=== PATIENT | male | born 1935 | race Native Hawaiian/Other Pacific Islander ===

== ENCOUNTER 2017-09-19 13:39 | Outpatient (CLI) | payer OTHER | END 2017-09-19 19:12 | disposition home or self-care (01) | LOC: RAD 13:39 | DX: R05 Cough (principal) ==

== ENCOUNTER 2017-10-03 08:18 | Outpatient (CLI) | payer OTHER | END 2017-10-03 09:30 | disposition home or self-care (01) | LOC: RESP 08:18 | DX: J20.9 Acute bronchitis, unspecified (principal); R05 Cough | CPT/HCPCS: 36600; 82805; 94640; 94664 ==

== ENCOUNTER 2018-02-20 08:58 | Observation (INO) | payer OTHER ==
[~2018-02-20] VITALS: Ht 177.8 cm; Wt 69.5 kg
[2018-02-20 09:33] LABS: PLATELET COUNT 112 K/uL (142-355)
[2018-02-20 09:38] LABS: POTASSIUM 3.9 mmol/L (3.6-5.2)
[2018-02-20 10:06] VITALS: BP 136/54; TEMP 97.6; Ht 177.8 cm; Wt 69.5 kg
[2018-02-20 11:25] LABS: PARTIAL THROMBOPLASTIN TIME 24.7 SECONDS (24.5-33.6)
[2018-02-20 16:00] VITALS: BP 124/56; TEMP 98.9
--- NOTE | 2018-02-20 17:34 | NUR ---
ORTHOSTATIC BLOOD PRESSURE LYIN/56 SITTIN/56 STANDIN/49 DR MICHAELS NOTIFIED. BMP ORDERED FOR IN THE AM AND ORDER TO INCREASE IV FLUIDS TO 85ML/HR.
--- NOTE | 2018-02-20 17:45 | NUR ---
DR. STRAUSS HERE AT THIS TIME TO CONSULT WITH PT.
--- NOTE | 2018-02-20 18:15 | NUR ---
DR STRAUSS WROTE IN PROGRESS NOTES "IMPRESSION PARKINSONS DISEASE" AND WROTE ORDERS TO START CARVIDOPA TID. PT GIVEN FIRST DOSE TONIGHT. DISEASE EXPLAINED TO FAMILY AND PT PER DR. STRAUSS.
--- NOTE | 2018-02-20 19:20 | NUR ---
DR. MICHAELS CALLED AND NOTIFIED ABOUT DR. ABBOTT PROGRESS NOTE AND NEW ORDERS. DR. MICHAELS STATES TO MONITOR PTS BLOOD PRESSURE.
[2018-02-20 20:00] VITALS: BP 133/66; TEMP 99.3
[2018-02-21] VITALS: BP 140/63; TEMP 98.4
[2018-02-21 04:00] VITALS: BP 138/69; TEMP 98.1
[2018-02-21 06:37] LABS: POTASSIUM 3.5 mmol/L (3.6-5.2)
[2018-02-21 08:00] VITALS: BP 129/71; TEMP 98.9
== END 2018-02-21 10:55 | disposition home or self-care (01) ==
LOC: MED/SURG 08:58
PROVIDERS: ADMIT Internal Medicine
DX: R55 Syncope and collapse (principal); R53.1 Weakness; R42 Dizziness and giddiness; G20 Parkinson's disease; R25.8 Other abnormal involuntary movements; G95.89 Other specified diseases of spinal cord
CPT/HCPCS: 80048; 80053; 81000; 82550; 83735; 84443; 84484; 85027; 85379; 85610; 85730; 93005; 96365; 96366; 99220; A9576; G0378; G0379

== ENCOUNTER 2018-08-07 12:47 | Outpatient (CLI) | payer OTHER ==
[2018-08-07 13:22] LABS: POTASSIUM 3.8 mmol/L (3.6-5.2)
[2018-08-07 13:25] LABS: PLATELET COUNT 132 K/uL (142-355)
== END 2018-08-07 19:42 | disposition home or self-care (01) ==
LOC: LAB 12:47
PROVIDERS: Internal Medicine
DX: G20 Parkinson's disease (principal); Z79.899 Other long term (current) drug therapy; E53.8 Deficiency of other specified B group vitamins; E55.9 Vitamin D deficiency, unspecified; R29.898 Other symptoms and signs involving the musculoskeletal system
CPT/HCPCS: 80053; 80061; 81000; 82306; 82550; 82607; 83735; 84439; 84443; 85027; 85651; 86039

== ENCOUNTER 2018-12-31 08:58 | Inpatient (IN) | payer OTHER ==
[~2018-12-31] VITALS: Ht 177.8 cm; Wt 58.3 kg
[2018-12-31 11:22] LABS: PLATELET COUNT 135 K/uL (142-355)
[2018-12-31 11:49] LABS: POTASSIUM 3.8 mmol/L (3.6-5.2)
[2018-12-31 13:39] VITALS: BP 182/77; TEMP 98.1; Ht 177.8 cm; Wt 58.3 kg
[2018-12-31 17:00] VITALS: BP 156/61; TEMP 101.9
[2018-12-31 20:00] VITALS: BP 128/60; TEMP 98.8
[2019-01-01] VITALS: BP 153/60; TEMP 102.1
[2019-01-01 04:29] VITALS: BP 104/80; TEMP 99.1
[2019-01-01 06:15] LABS: POTASSIUM 3.6 mmol/L (3.6-5.2); SODIUM 138 mmol/L (136-145)
[2019-01-01 08:05] VITALS: BP 136/64; TEMP 100
[2019-01-01 12:00] VITALS: BP 137/60; TEMP 99
[2019-01-01 16:00] VITALS: BP 157/70; TEMP 100.5
[2019-01-01 20:00] VITALS: BP 157/63; TEMP 97.7
[2019-01-02] VITALS: BP 144/64; TEMP 98.6
[2019-01-02 04:00] VITALS: BP 137/58; TEMP 98.4
[2019-01-02 08:00] VITALS: BP 133/62; TEMP 97.8
[2019-01-02 08:32] LABS: PLATELET COUNT 102 K/uL (142-355)
[2019-01-02 08:45] LABS: POTASSIUM 3.7 mmol/L (3.6-5.2)
[2019-01-02 12:00] VITALS: BP 135/58; TEMP 97.6
[2019-01-02 16:16] VITALS: BP 126/57; TEMP 98
[2019-01-02 20:00] VITALS: BP 149/64; TEMP 98.7
[2019-01-03] VITALS: BP 161/84; TEMP 98.8
[2019-01-03 04:00] VITALS: BP 141/70; TEMP 97.6
[2019-01-03 08:00] VITALS: BP 140/55; TEMP 97.6
[2019-01-03 12:00] VITALS: BP 154/70; TEMP 98
[2019-01-03 16:00] VITALS: BP 138/69; TEMP 97.7
[2019-01-03 20:20] VITALS: BP 164/72; TEMP 98.1
[2019-01-04] VITALS (7 sets, daily range): BP systolic 127–181; BP diastolic 63–86; TEMP 97.5–98.3
[2019-01-04 06:45] LABS: POTASSIUM 4.3 mmol/L (3.6-5.2)
[2019-01-05 04:00] VITALS: BP 121/70; TEMP 97.7
[2019-01-05 05:52] LABS: POTASSIUM 4.5 mmol/L (3.6-5.2)
[2019-01-05 08:00] VITALS: BP 144/68; TEMP 99.1
[2019-01-05 12:00] VITALS: BP 139/73; TEMP 97.7
[2019-01-05 16:00] VITALS: BP 111/57; TEMP 97.2
[2019-01-05 20:08] VITALS: BP 109/73; TEMP 98
[2019-01-06] VITALS (14 sets, daily range): BP systolic 109–159; BP diastolic 37–78; TEMP 97.3–98.8
[2019-01-06 06:30] LABS: POTASSIUM 3.7 mmol/L (3.6-5.2)
[2019-01-07] VITALS: BP 141/70; TEMP 99.1
[2019-01-07 04:00] VITALS: BP 132/67; TEMP 97.7
[2019-01-07 06:49] LABS: POTASSIUM 3.8 mmol/L (3.6-5.2)
[2019-01-07 08:00] VITALS: BP 147/69; TEMP 98.8
[2019-01-07 12:00] VITALS: BP 135/62; TEMP 98.2
[2019-01-07 16:00] VITALS: BP 99/49; TEMP 98.3
[2019-01-07 20:00] VITALS: BP 115/54; TEMP 98.2
[2019-01-08] VITALS: BP 128/61; TEMP 97.6
[2019-01-08 04:00] VITALS: BP 105/60; TEMP 97.7
[2019-01-08 08:00] VITALS: BP 109/52; TEMP 97.4
[2019-01-08 12:00] VITALS: BP 113/55; TEMP 98.4
== END 2019-01-08 15:55 | disposition home or self-care (01) | DRG 178 ==
LOC: MED/SURG 08:58
PROVIDERS: ADMIT Internal Medicine
PROC: 0DH63UZ Insertion of Feeding Device into Stomach, Percutaneous Approach (ICD-10-PCS; principal; 2019-01-06)
DX: J69.0 Pneumonitis due to inhalation of food and vomit (principal); J44.1 Chronic obstructive pulmonary disease with (acute) exacerbation; J44.0 Chronic obstructive pulmonary disease with (acute) lower respiratory infection; G20 Parkinson's disease; K58.9 Irritable bowel syndrome, unspecified; L71.8 Other rosacea; E86.0 Dehydration; R13.12 Dysphagia, oropharyngeal phase
CPT/HCPCS: 36415; 80048; 80053; 81000; 82550; 83735; 83880; 84484; 85027; 85379; 85651; 87040; 87070; 87205; 87502; 87651; 87899; 93005; 94640; 94664; 94668; 94760; J1650; J1956; J2001; J2250; J2704; J2920; J3010; J3490

== ENCOUNTER 2019-02-24 10:26 | Outpatient (CLI) | payer OTHER | END 2019-02-24 23:00 | disposition home or self-care (01) | LOC: LAB 10:26 | DX: R19.7 Diarrhea, unspecified (principal) | CPT/HCPCS: 82272; 83630; 87015; 87045; 87206; 87324; 87328; 87329; 87449; 87507; 87899 ==

== ENCOUNTER 2019-03-05 15:00 | Outpatient (CLI) | payer OTHER | END 2019-03-05 23:47 | disposition home or self-care (01) | LOC: RAD 15:00 | DX: T17.900S Unspecified foreign body in respiratory tract, part unspecified causing asphyxiation, sequela (principal) ==

== ENCOUNTER 2019-04-15 13:38 | Outpatient (CLI) | payer OTHER | END 2019-04-15 20:33 | disposition home or self-care (01) | LOC: LAB 13:38 | DX: R19.7 Diarrhea, unspecified (principal) | CPT/HCPCS: 82272; 83630; 87015; 87045; 87324; 87328; 87329; 87449; 87507; 87899 ==

== ENCOUNTER 2019-05-15 19:31 | Outpatient (CLI) | payer OTHER | END 2019-05-15 20:16 | disposition home or self-care (01) | LOC: LABW 19:31 | DX: R19.7 Diarrhea, unspecified (principal) | CPT/HCPCS: 83630; 87015; 87045; 87206; 87324; 87328; 87329; 87449; 87507; 87899 ==

== ENCOUNTER 2019-05-26 09:00 | Inpatient (IN) | payer OTHER ==
[~2019-05-26] VITALS: Ht 177.8 cm; Wt 62.7 kg
[2019-05-26 09:57] LABS: PLATELET COUNT 144 K/uL (142-355)
[2019-05-26 10:21] LABS: POTASSIUM 4.3 mmol/L (3.6-5.2)
[2019-05-26 12:01] VITALS: BP 127/50; TEMP 97.8; Ht 177.8 cm; Wt 62.7 kg
[2019-05-26 16:00] VITALS: BP 169/65; TEMP 99.6
[2019-05-26 20:00] VITALS: BP 142/64; TEMP 101.4
[2019-05-27] VITALS (7 sets, daily range): BP systolic 134–178; BP diastolic 57–96; TEMP 97.2–99.1
[2019-05-27 09:29] LABS: PLATELET COUNT 131 K/uL (142-355)
[2019-05-27 09:56] LABS: POTASSIUM 3.4 mmol/L (3.6-5.2)
[2019-05-28 04:00] VITALS: BP 144/62; TEMP 100.1
[2019-05-28 05:07] LABS: PLATELET COUNT 122 K/uL (142-355)
[2019-05-28 05:21] LABS: POTASSIUM 3.1 mmol/L (3.6-5.2)
[2019-05-28 08:00] VITALS: BP 142/66; TEMP 98.1
[2019-05-28 12:00] VITALS: BP 138/57; TEMP 98.9
[2019-05-28 16:00] VITALS: BP 160/76; TEMP 98.4
[2019-05-28 20:00] VITALS: BP 147/60; TEMP 98.7
[2019-05-29 00:19] VITALS: BP 169/79; TEMP 98.2
[2019-05-29 04:00] VITALS: BP 163/70; TEMP 98.6
[2019-05-29 05:16] LABS: PLATELET COUNT 137 K/uL (142-355)
[2019-05-29 05:55] LABS: POTASSIUM 3.3 mmol/L (3.6-5.2)
[2019-05-29 08:00] VITALS: BP 169/76; TEMP 97.6
[2019-05-29 12:00] VITALS: BP 158/80; TEMP 98.1
[2019-05-29 16:00] VITALS: BP 173/68; TEMP 98.7
[2019-05-29 19:40] VITALS: BP 166/73; TEMP 99
[2019-05-30 00:03] VITALS: BP 162/75; TEMP 98.7
[2019-05-30 04:23] VITALS: BP 164/68; TEMP 98.3
[2019-05-30 05:16] LABS: PLATELET COUNT 130 K/uL (142-355)
[2019-05-30 08:00] VITALS: BP 156/66; TEMP 98
[2019-05-30 12:00] VITALS: BP 148/59; TEMP 98.9
[2019-05-30 16:00] VITALS: BP 139/44; TEMP 100.1
[2019-05-30 20:00] VITALS: BP 121/51; TEMP 98.8
[2019-05-31] VITALS: BP 106/58; TEMP 98.4
[2019-05-31 04:00] VITALS: BP 148/58; TEMP 98.2
[2019-05-31 04:58] LABS: PLATELET COUNT 129 K/uL (142-355)
[2019-05-31 05:18] LABS: POTASSIUM 3.3 mmol/L (3.6-5.2)
[2019-05-31 08:00] VITALS: BP 157/68; TEMP 98.2
[2019-05-31 12:00] VITALS: BP 140/56; TEMP 98.4
[2019-05-31 16:00] VITALS: BP 165/78; TEMP 98.8
[2019-05-31 20:00] VITALS: BP 172/74; TEMP 98.3
[2019-06-01] VITALS (7 sets, daily range): BP systolic 147–197; BP diastolic 61–93; TEMP 98.1–99.4
[2019-06-01 04:39] LABS: PLATELET COUNT 134 K/uL (142-355)
[2019-06-01 04:56] LABS: POTASSIUM 3.7 mmol/L (3.6-5.2)
[2019-06-02 03:34] VITALS: BP 170/75; TEMP 98
[2019-06-02 06:00] VITALS: BP 150/68
[2019-06-02 12:00] VITALS: BP 145/71; TEMP 98.1
[2019-06-02 16:00] VITALS: BP 160/68; TEMP 98.7
[2019-06-02 21:10] VITALS: BP 166/73; TEMP 98.6
[2019-06-02 23:42] VITALS: BP 161/71; TEMP 97.4
[2019-06-03] VITALS (12 sets, daily range): BP systolic 127–162; BP diastolic 54–75; TEMP 97.2–98.8
[2019-06-03 08:44] LABS: PLATELET COUNT 160 K/uL (142-355)
[2019-06-03 08:59] LABS: POTASSIUM 3.6 mmol/L (3.6-5.2)
[2019-06-04] VITALS: BP 172/83; TEMP 98.7
[2019-06-04 04:00] VITALS: BP 147/78; TEMP 98.7
[2019-06-04 05:46] LABS: POTASSIUM 3.6 mmol/L (3.6-5.2)
[2019-06-04 05:56] LABS: PLATELET COUNT 147 K/uL (142-355)
[2019-06-04 08:00] VITALS: BP 160/80; TEMP 97.4
[2019-06-04 12:00] VITALS: BP 143/61; TEMP 97.9
== END 2019-06-04 13:00 | disposition home health service (06) | DRG 375 ==
LOC: MED/SURG 09:00
PROVIDERS: Internal Medicine; ADMIT Internal Medicine
PROC: 0DBL8ZX Excision of Transverse Colon, Via Natural or Artificial Opening Endoscopic, Diagnostic (ICD-10-PCS; principal; 2019-06-03)
DX: C18.3 Malignant neoplasm of hepatic flexure (principal); E46 Unspecified protein-calorie malnutrition; T17.820A Food in other parts of respiratory tract causing asphyxiation, initial encounter; E86.0 Dehydration; K52.89 Other specified noninfective gastroenteritis and colitis; R53.1 Weakness; R13.19 Other dysphagia; E87.6 Hypokalemia; I10 Essential (primary) hypertension; R74.0 Nonspecific elevation of levels of transaminase and lactic acid dehydrogenase [LDH]; K64.8 Other hemorrhoids; G20 Parkinson's disease; J44.9 Chronic obstructive pulmonary disease, unspecified
CPT/HCPCS: 36415; 80053; 81000; 82150; 82272; 83690; 83735; 84436; 84443; 85027; 87015; 87045; 87070; 87205; 87324; 87328; 87329; 87449; 87507; 87899; J0360; J0456; J0696; J2001; J2405; J2704; J3490; Q9963

== ENCOUNTER 2019-08-20 13:28 | Inpatient (IN) | payer OTHER ==
[~2019-08-20] VITALS: Ht 177.8 cm; Wt 50.0 kg
[2019-08-20 15:10] VITALS: BP 120/57; TEMP 97.9; Ht 177.8 cm; Wt 50.0 kg
[2019-08-20 15:34] LABS: PLATELET COUNT 177 K/uL (142-355)
[2019-08-20 16:03] LABS: POTASSIUM 3.9 mmol/L (3.6-5.2)
[2019-08-20 20:00] VITALS: BP 131/63; TEMP 95
[2019-08-21 20:00] VITALS: BP 140/62; TEMP 99
[2019-08-22 08:00] VITALS: BP 123/56; TEMP 97.6
[2019-08-23 08:00] VITALS: BP 148/75; TEMP 97.7
[2019-08-23 19:52] VITALS: BP 135/64; TEMP 97.9
[2019-08-24 19:50] VITALS: BP 140/62; TEMP 98
[2019-08-25 08:04] VITALS: BP 143/62; TEMP 98.1
[2019-08-25 20:00] VITALS: BP 135/56; TEMP 99.6
[2019-08-26 08:02] VITALS: BP 113/59; TEMP 98.1
[2019-08-26 19:32] VITALS: BP 132/6; TEMP 98.3
[2019-08-27 06:46] LABS: POTASSIUM 4.1 mmol/L (3.6-5.2)
[2019-08-27 06:53] LABS: PLATELET COUNT 159 K/uL (142-355)
[2019-08-27 19:50] VITALS: BP 115/56; TEMP 100
[2019-08-28 08:46] VITALS: BP 127/61; TEMP 98.3
[2019-08-28 19:55] VITALS: BP 141/59; TEMP 100
[2019-08-29 08:10] VITALS: BP 122/57; TEMP 97.9
[2019-08-29 20:00] VITALS: BP 155/80; TEMP 99.7
[2019-08-30 08:07] VITALS: BP 127/65; TEMP 97.1
[2019-08-30 20:00] VITALS: BP 134/63; TEMP 98.9
[2019-08-31 08:00] VITALS: BP 130/60; TEMP 97.6
[2019-08-31 19:33] VITALS: BP 127/60; TEMP 98.6
[2019-09-01 08:28] VITALS: BP 135/67; TEMP 98.2
[2019-09-01 09:28] LABS: PLATELET COUNT 217 K/uL (142-355)
[2019-09-01 09:45] LABS: POTASSIUM 4.3 mmol/L (3.6-5.2)
[2019-09-01 19:59] VITALS: BP 125/70; TEMP 98
[2019-09-03 20:03] VITALS: BP 137/69; TEMP 98.1
[2019-09-03 20:05] VITALS: BP 137/69; TEMP 98.1
[2019-09-04 08:30] VITALS: BP 143/71; TEMP 98.1
[2019-09-04 20:16] VITALS: BP 124/57; TEMP 98.1
[2019-09-05 14:13] VITALS: BP 124/56; TEMP 97.9
[2019-09-05 20:08] VITALS: BP 148/67; TEMP 97.6
[2019-09-06 08:00] VITALS: BP 155/65; TEMP 98
[2019-09-06 19:49] VITALS: BP 139/65; TEMP 98.5
[2019-09-07 20:00] VITALS: BP 133/59; TEMP 98.1
[2019-09-08 08:21] VITALS: BP 143/61; TEMP 97.5
[2019-09-08 20:00] VITALS: BP 143/59; TEMP 98.4
== END 2019-09-09 12:00 | disposition home health service (06) | DRG 555 ==
LOC: MED/SURG 13:28
PROVIDERS: ADMIT Internal Medicine
DX: M62.81 Muscle weakness (generalized) (principal); J69.0 Pneumonitis due to inhalation of food and vomit; J44.0 Chronic obstructive pulmonary disease with (acute) lower respiratory infection; C18.9 Malignant neoplasm of colon, unspecified; R00.0 Tachycardia, unspecified; R13.12 Dysphagia, oropharyngeal phase; R06.02 Shortness of breath; R06.2 Wheezing; R62.7 Adult failure to thrive; I48.91 Unspecified atrial fibrillation; G20 Parkinson's disease; G31.84 Mild cognitive impairment of uncertain or unknown etiology
CPT/HCPCS: 80053; 85027; 87081; 94640; 94664; 94668; 94760

== ENCOUNTER 2019-09-02 08:00 | Outpatient (CLI) | payer OTHER | END 2019-09-02 16:00 | disposition home or self-care (01) | LOC: CT 08:00 | DX: M25.511 Pain in right shoulder (principal); S00.81XA Abrasion of other part of head, initial encounter; W18.39XA Other fall on same level, initial encounter; Y93.89 Activity, other specified; Y92.89 Other specified places as the place of occurrence of the external cause ==

== ENCOUNTER 2019-09-13 08:17 | Emergency (ER) | payer OTHER ==
[~2019-09-13] VITALS: Ht 177.8 cm; Wt 49.9 kg
[2019-09-13 08:20] VITALS: TEMP 98
[2019-09-13 09:37] LABS: POTASSIUM 4.2 mmol/L (3.6-5.2)
[2019-09-13 09:54] LABS: PLATELET COUNT 174 K/uL (142-355)
[2019-09-13 10:57] VITALS: BP 141/64
== END 2019-09-13 11:01 | disposition home or self-care (01) ==
LOC: ED 08:17
PROVIDERS: Emergency Medicine
PROC: 0D20XUZ Change Feeding Device in Upper Intestinal Tract, External Approach (ICD-10-PCS; principal; 2019-09-13)
DX: K94.29 Other complications of gastrostomy (principal); W18.39XA Other fall on same level, initial encounter; Y92.89 Other specified places as the place of occurrence of the external cause
CPT/HCPCS: 36415; 80053; 85027; 93005; 99283

== ENCOUNTER 2019-09-25 10:03 | Outpatient (CLI) | payer OTHER ==
[2019-09-25 10:48] LABS: PLATELET COUNT 165 K/uL (142-355)
[2019-09-25 11:11] LABS: POTASSIUM 4.2 mmol/L (3.6-5.2)
== END 2019-09-25 20:42 | disposition home or self-care (01) ==
LOC: LAB 10:03
PROVIDERS: Internal Medicine Medical Oncology
DX: C18.3 Malignant neoplasm of hepatic flexure (principal); D64.89 Other specified anemias; K94.29 Other complications of gastrostomy
CPT/HCPCS: 80053; 82378; 82607; 82728; 82746; 83540; 83550; 85027; 87070; 87077; 87186; 87205

== ENCOUNTER 2019-10-13 10:41 | Outpatient (CLI) | payer OTHER ==
[2019-10-13 11:14] LABS: PLATELET COUNT 212 K/uL (142-355)
[2019-10-13 11:28] LABS: POTASSIUM 4.2 mmol/L (3.6-5.2)
== END 2019-10-13 19:26 | disposition home or self-care (01) ==
LOC: LAB 10:41
PROVIDERS: Internal Medicine Medical Oncology
DX: C18.3 Malignant neoplasm of hepatic flexure (principal); D64.89 Other specified anemias
CPT/HCPCS: 36415; 80053; 82378; 85027

== ENCOUNTER 2019-12-24 09:21 | Day surgery (SDC) | payer OTHER ==
[2019-12-24 10:36] LABS: PLATELET COUNT 148 K/uL (142-355)
[2019-12-24 10:39] LABS: POTASSIUM 4.2 mmol/L (3.6-5.2)
== END 2019-12-25 14:07 | disposition home or self-care (01) ==
LOC: OR 09:21
PROVIDERS: Internal Medicine Gastroenterology
PROC: 0DH63UZ Insertion of Feeding Device into Stomach, Percutaneous Approach (ICD-10-PCS; principal; 2019-12-24)
DX: K29.00 Acute gastritis without bleeding (principal); K44.9 Diaphragmatic hernia without obstruction or gangrene; K22.2 Esophageal obstruction; R13.19 Other dysphagia; K94.23 Gastrostomy malfunction; K20.8 Other esophagitis; J44.9 Chronic obstructive pulmonary disease, unspecified
CPT/HCPCS: 80053; 85027; 94640; 94664; J2001

== ENCOUNTER 2020-01-21 09:27 | Outpatient (CLI) | payer OTHER ==
[2020-01-21 09:44] LABS: PLATELET COUNT 139 K/uL (142-355)
[2020-01-21 10:04] LABS: POTASSIUM 4.1 mmol/L (3.6-5.2)
== END 2020-01-21 19:20 | disposition home or self-care (01) ==
LOC: LAB 09:27
PROVIDERS: Internal Medicine Medical Oncology
DX: Z12.5 Encounter for screening for malignant neoplasm of prostate (principal); C18.3 Malignant neoplasm of hepatic flexure; D64.89 Other specified anemias
CPT/HCPCS: 80053; 82378; 82728; 82746; 83540; 83550; 84153; 85027

== ENCOUNTER 2020-12-02 12:13 | Outpatient (CLI) | payer OTHER | END 2020-12-02 21:35 | disposition home or self-care (01) | LOC: INF 12:13 | PROVIDERS: ATTEND Internal Medicine Endocrinology, Diabetes & Metabolism | DX: Z23 Encounter for immunization (principal) | CPT/HCPCS: 96372 ==

== ENCOUNTER 2020-12-30 11:26 | Outpatient (CLI) | payer OTHER | END 2020-12-30 19:53 | disposition home or self-care (01) | LOC: INF 11:26 | PROVIDERS: ATTEND Internal Medicine Endocrinology, Diabetes & Metabolism | DX: Z23 Encounter for immunization (principal) | CPT/HCPCS: 96372 ==

== ENCOUNTER 2022-01-06 16:12 | Outpatient (CLI) | payer OTHER ==
[2022-01-06 16:46] LABS: PLATELET COUNT 143 K/uL (142-355)
== END 2022-01-06 20:05 | disposition home or self-care (01) ==
LOC: LABW 16:12
PROVIDERS: ATTEND Internal Medicine Medical Oncology
DX: C18.3 Malignant neoplasm of hepatic flexure (principal); R26.81 Unsteadiness on feet; R53.83 Other fatigue; Z85.038 Personal history of other malignant neoplasm of large intestine; D64.89 Other specified anemias; Z12.5 Encounter for screening for malignant neoplasm of prostate; E53.8 Deficiency of other specified B group vitamins; Z08 Encounter for follow-up examination after completed treatment for malignant neoplasm
CPT/HCPCS: 36415; 82607; 82728; 82746; 83540; 83550; 85027; 85044

== ENCOUNTER 2022-07-17 16:20 | Inpatient (IN) | payer OTHER ==
[2022-07-17] VITALS (9 sets, daily range): BP systolic 154–185; BP diastolic 60–86; TEMP 98.2–98.7; Ht 170.2 cm; Wt 55.5 kg
[~2022-07-17] VITALS: Ht 170.2 cm; Wt 55.5 kg
[2022-07-17 17:03] LABS: PLATELET COUNT 142 K/uL (142-355)
[2022-07-17 17:06] LABS: POTASSIUM 3.9 mmol/L (3.6-5.2)
[2022-07-18] VITALS (9 sets, daily range): BP systolic 105–185; BP diastolic 57–84; TEMP 97–99
[2022-07-18 05:25] LABS: PLATELET COUNT 120 K/uL (142-355)
[2022-07-18 05:35] LABS: POTASSIUM 3.4 mmol/L (3.6-5.2)
[2022-07-19] VITALS: BP 186/90; TEMP 98.2
[2022-07-19 04:00] VITALS: BP 184/84; TEMP 98
[2022-07-19 05:27] LABS: PLATELET COUNT 124 K/uL (142-355)
[2022-07-19 08:00] VITALS: BP 158/75; TEMP 97.7
[2022-07-19 12:00] VITALS: BP 156/69; TEMP 97.8
[2022-07-19 16:00] VITALS: BP 175/70; TEMP 98.2
[2022-07-19 20:00] VITALS: BP 122/96; TEMP 98.5
[2022-07-20 00:05] VITALS: BP 163/74; TEMP 97.9
[2022-07-20 04:00] VITALS: TEMP 98.1
[2022-07-20 05:30] VITALS: BP 176/76
[2022-07-20 06:25] VITALS: BP 163/70
[2022-07-20 08:28] VITALS: BP 137/70; TEMP 98.3
[2022-07-20 11:25] VITALS: BP 169/74; TEMP 97.3
== END 2022-07-20 11:33 | disposition home health service (06) | DRG 57 ==
LOC: ED 16:20 → MED/SURG 19:00 → UNDODEPER 07-18 19:20 → MED/SURG 07-20 11:33
PROVIDERS: ADMIT Emergency Medicine Emergency Medical Services; ATTEND Internal Medicine
DX: G20 Parkinson's disease (principal); Z68.1 Body mass index [BMI] 19.9 or less, adult; R62.7 Adult failure to thrive; F02.80 Dementia in other diseases classified elsewhere, unspecified severity, without behavioral disturbance, psychotic disturbance, mood disturbance, and anxiety; I69.391 Dysphagia following cerebral infarction; R13.19 Other dysphagia; Z91.81 History of falling; R63.0 Anorexia; R53.1 Weakness; I10 Essential (primary) hypertension; J44.9 Chronic obstructive pulmonary disease, unspecified; Z85.038 Personal history of other malignant neoplasm of large intestine; E87.6 Hypokalemia; W18.39XA Other fall on same level, initial encounter; Y92.89 Other specified places as the place of occurrence of the external cause
CPT/HCPCS: 36415; 80048; 80053; 81002; 82533; 82607; 83735; 84443; 84484; 85027; 87635; 93005; 96360; 96361; 99284; J0360; J1650; J3490; U0003